=== PATIENT | male | born 1965 | race Two or more races ===

== ENCOUNTER 2025-08-22 13:35 | Outpatient (AMB) | payer MEDICAID, SELFPAY ==
[2025-08-22 13:45] VITALS: BP 136/65; PULSE 57; RESP 18; TEMP 37; O2SAT 96; BMI 28.7
--- NOTE | 2025-08-22 13:45 | PD.GSCLVISIT ---
[facility] - [facility] 08/22/25 13:45 Height 1.66 m Height Method Measured Weight 79.124 kg Weight Measurement Method Standing Scale BMI 28.7 BP 136/65 H Blood Pressure Source Automatic Cuff Blood Pressure Location Left Upper Arm Position Sitting Respiration 18 Pulse 57 L Pulse Source Monitor Temp 98.6 F Temp Source Temporal Artery Scan Pulse Oximetry (%) 96 Oxygen Delivery Method Room Air Med/Allergies Allergies & Medications Allergies NKA* Allergy (Uncoded 08/22/25 13:51) Medication Reconciliation hydrocodone 5 mg-acetaminophen 325 mg tablet ([place]) 1 tab PO Q6HR PRN pain #30 tabs 06/14/18 [Rx Confirmed 08/22/25] MA Intake Visit Data Collection New Patient or Established: New Patient (never been to [facility]) Seen by Clinical Staff ONLY (RN/MA): No Reason for Visit:: REFERRAL COLONOSCOPY Pain Present Currently: No Pain scale:: 0 Pain Scale Used: Rodriguez-Joshi/Numerical Featheredge Machine Operator Required: Yes PCP or OBGYN visit in last 3 months: Yes Hx Now: No Do You Feel Safe at Home: Yes Authorities Contacted: N/A Smoking Status Smoking Status: Never smoker Immunization / Flu Flu Vaccine in the Last 12 Months: Yes Flu Vaccine Exclusion Criteria: Already Received Past Medical History Past Medical History NEUROLOGIC: Negative Seizures CARDIAC: Negative Cardiac Disorders or Congestive Heart Failure RESPIRATORY: Negative Chronic Obstructive Pulmonary Disease (COPD) or Asthma GENITOURINARY: Negative Renal Disease ENDOCRINE: Negative Diabetes Mellitus Type 1 or Diabetes Mellitus Type 2 HEMATOLOGIC: Negative Sickle Cell Disease OTHER HISTORY: Negative Blood Transfusions, Blood Transfusion Reaction or Anesthesia Reactions Social History SMOKING STATUS: Smoking status: Never smoker ALCOHOL: Alcohol Intake: Current ALCOHOL FREQUENCY: Alcohol Intake Frequency: 0-2 Drinks per Day HOUSING: Housing: House LIVES WITH: Lives With: Family HPI HPI Narrative HISTORY OF PRESENT ILLNESS I, Margy Connelly, have obtained verbal consent from the patient, to be recorded during this encounter which may include, but not limited to, medical history, examination, treatment plans, and relevant health information.? Patient was informed that recording will be read and reviewed by myself before inclusion in the medical chart. The patient presents for a colonoscopy. Spoke to pt with in-person interpreter and translator 60M referred for his first colonoscopy. He reports no recent alterations in his bowel movements, maintaining regularity without any instances of constipation or straining. He has not observed any blood in his stool or on the toilet paper after wiping. He denies any anorexia, unintentional weight loss and overall feels well PMH: None PSH: Appendectomy in 2018, pathology reviewed Meds: None Allergies: NKDA Family history: Brother diagnosed with colon cancer at age 67. Patient reports he does have other siblings none of whom were diagnosed with cancer 1. Colonoscopy. A colonoscopy is recommended to screen for polyps before they become cancerous, especially given the family history of colon cancer. The procedure will be scheduled within the next 2 weeks or by the following month. Instructions for pre-procedure preparation have been provided, including dietary restrictions and the need to consume clear liquids the day before the procedure. A prescription for a bowel-cleansing medication will be sent to the pharmacy, which should be taken the day before the procedure to induce diarrhea. The potential risks associated with the procedure, such as bleeding and colon perforation, have been discussed. If polyps are found during the procedure, they will be removed. If the entire colon cannot be safely visualized, the procedure will be stopped, and a referral to a dairy cattle farmer will be made. ROS Review of Systems Systems Reviewed: All systems reviewed, normal except as documented Objective/Exam General General Appearance: alert, cooperative and well groomed Resp Respiratory exam: Absent respiratory distress Assessment & Plan Diagnosis / Problem List (1) Encounter for colonoscopy in patient with family history of colon cancer: Status: Acute Assessment & Plan: 60M with no PMH, brother diagnosed with colon CA at age 67 needing first screening colonoscopy. I explained prep, sedation and benefits/risks including bleeding, perforation requiring emergency surgery as well as the potential of needing to abort prematurely for safety. All questions were answered and pt is agreeable to proceeding Office Procedures GNS Level of Care Nursing/Assessment Patient Status: Established Patient Nursing Assessment/Reassesment: Medication Reconciliation, Update PMH in EMR and Vital Signs Coordination of Care: Complex Care and Chronic Disease 1-5, Education Complex Pt/Fam, Consent,records obtained, informed consent, Results/Orders obtained and Staff clarify orders Established Patient Charge Established Patient Point Assignment: 95 Established Patient Point Charge: EP Level 3 (80-115) Patient Portal Questionaires Social History Living Situation History Housing: House Tobacco History Smoking Status: Never smoker Alcohol History Alcohol Intake: Current Alcohol Intake Frequency: 0-2 Drinks per Day Domestic Abuse History Do You Feel Safe at Home: Yes Review of Systems Report any current symptoms Only answer those that you have currently: Past Medical History Past Medical History Have you ever been diagnosed with any of the following: Neurological Problems Seizures: No Cardiology Problems Congestive Heart Failure: No Respiratory Problems Chronic Obstructive Pulmonary Disease (COPD): No Asthma: No Genital/Urinary Problems Renal Disease: No Endocrine Problems Diabetes Mellitus Type 1: No Diabetes Mellitus Type 2: No Blood Problems Sickle Cell Disease: No Other Problems Blood Transfusions: No Blood Transfusion Reaction: No Anesthesia Reactions: No
== END 2025-08-22 14:05 | disposition home or self-care (01) ==
LOC: HODSRG 13:35
PROVIDERS: PCP Family Medicine; Referring Provider Family Medicine; Supervising Provider Otolaryngology; Visit Provider Surgery
DX: Z01.818 Encounter for other preprocedural examination (principal); Z80.0 Family history of malignant neoplasm of digestive organs
CPT/HCPCS: 99213; G0463

== ENCOUNTER 2025-09-01 09:00 | Day surgery (SDC) | payer MEDICAID, SELFPAY ==
[2025-08-29 13:04] VITALS: BMI 28.3
[2025-09-01] VITALS (12 sets, daily range): BP systolic 114–147; BP diastolic 72–89; PULSE 57–64; RESP 15–20; TEMP 36.3–36.8; O2SAT 94–98; BMI 28.9
[2025-09-01] MEDS: RINGERS LACTATED 500 ML 500 ML 20 ML IV (11:00)
[2025-09-01] MEDS: fentaNYL CIT INJ 50 mCg/ML AMP 2ML (ASD USE ONLY) IVP (11:04)
[2025-09-01] MEDS: MIDAZOLAM INJ 1 MG/ML VIAL 2 ML (ASD USE ONLY) 2 MG IVP (11:04)
== END 2025-09-01 12:05 | disposition home or self-care (01) ==
PROVIDERS: PCP Family Medicine; Referring Provider Surgery; Visit Provider Surgery
PROC: 0DBE8ZX Excision of Large Intestine, Via Natural or Artificial Opening Endoscopic, Diagnostic (ICD-10-PCS; CPT 45380; principal; 2025-09-01 11:15)
DX: Z12.11 Encounter for screening for malignant neoplasm of colon (principal); D12.3 Benign neoplasm of transverse colon; K64.8 Other hemorrhoids; K57.30 Diverticulosis of large intestine without perforation or abscess without bleeding; Z80.0 Family history of malignant neoplasm of digestive organs
CPT/HCPCS: 45385; A4649; J1200; J2250; J3010; J7120

== ENCOUNTER 2025-09-15 15:38 | Outpatient (AMB) | payer MEDICAID, SELFPAY ==
[2025-09-15 15:45] VITALS: BP 141/95; PULSE 75; RESP 18; TEMP 36.9; O2SAT 96; BMI 29.0
--- NOTE | 2025-09-15 15:45 | GSCOFFNT_ITS ---
[facility] - [facility] 09/15/25 15:45 Height 1.65 m Height Method Measured Weight 79.095 kg Weight Measurement Method Standing Scale BMI 29.0 BP 141/95 H Blood Pressure Source Automatic Cuff Blood Pressure Location Left Upper Arm Position Sitting Respiration 18 Pulse 75 Pulse Source Monitor Temp 98.4 F Temp Source Temporal Artery Scan Pulse Oximetry (%) 96 Oxygen Delivery Method Room Air Med/Allergies Allergies & Medications Allergies No Known Allergies Allergy (Verified 09/15/25 15:46) Medication Reconciliation No Known Home Medications 08/29/25 [History Confirmed 09/15/25] MA Intake Visit Data Collection New Patient or Established: Established Patient (seen at [facility] within 3 years) Seen by Clinical Staff ONLY (RN/MA): No Reason for Visit:: COLONOSCOPY F/U Pain Present Currently: No Pain Scale Used: Rodriguez-Joshi/Numerical Riveter Automobile Brakes Required: Yes PCP or OBGYN visit in last 3 months: Yes Hx Now: No Do You Feel Safe at Home: Yes Authorities Contacted: N/A Smoking Status Smoking Status: Never smoker Immunization / Flu Flu Vaccine in the Last 12 Months: Yes Flu Vaccine Exclusion Criteria: Already Received Past Medical History Past Medical History NEUROLOGIC: Negative Neurological Disorders or Seizures CARDIAC: Negative Cardiac Disorders or Congestive Heart Failure RESPIRATORY: Negative Chronic Obstructive Pulmonary Disease (COPD) or Asthma GASTROINTESTINAL: Negative Gastrointestinal Disorders GENITOURINARY: Negative Genitourinary Disorders or Renal Disease ENDOCRINE: Negative Endocrine Disorders, Diabetes Mellitus Type 1 or Diabetes Mellitus Type 2 HEMATOLOGIC: Negative Sickle Cell Disease OTHER HISTORY: Negative Blood Transfusions or Anesthesia Reactions Surgical History SURGICAL: Positive Abdominal Surgery Social History SMOKING STATUS: Smoking status: Never smoker ALCOHOL: Alcohol Intake: Former ALCOHOL FREQUENCY: Alcohol Intake Frequency: 0-2 Drinks per Day HOUSING: Housing: House LIVES WITH: Lives With: Family HPI HPI Narrative Spoke to pt with in-person bilingual interpreter 60M who presented for colonoscopy 08/2025 here for results. Pt reports feeling very well overall with no complaints, was found to have two polyps in the transverse colon, the larger of the two approx 1cm. The specimens were sent together and the report reads tubulovillous adenoma ROS Review of Systems Systems Reviewed: All systems reviewed, normal except as documented Objective/Exam General General Appearance: alert, cooperative and well groomed Resp Respiratory exam: Absent respiratory distress Results Colonoscopy and pathology reports reviewed Assessment & Plan Diagnosis / Problem List (1) Encounter to discuss colonoscopy results: Status: Acute Assessment & Plan: 60M who presented for colonoscopy 08/2025 here for results with findings of transverse colon tubulovillous adenoma. As such I recommended repeat colonoscopy in 3 years. All questions were answered and pt expressed understanding Office Procedures GNS Level of Care Nursing/Assessment Patient Status: Established Patient Nursing Assessment/Reassesment: Medication Reconciliation, Update PMH in EMR and Vital Signs Coordination of Care: Complex Care and Chronic Disease 1-5, Education Complex Pt/Fam, Consent,records obtained, informed consent, Results/Orders obtained and Staff clarify orders Established Patient Charge Established Patient Point Assignment: 95 Established Patient Point Charge: EP Level 3 (80-115) Patient Portal Questionaires Social History Living Situation History Housing: House Tobacco History Smoking Status: Never smoker Alcohol History Alcohol Intake: Former Alcohol Intake Frequency: 0-2 Drinks per Day Domestic Abuse History Do You Feel Safe at Home: Yes Review of Systems Report any current symptoms Only answer those that you have currently: Past Medical History Past Medical History Have you ever been diagnosed with any of the following: Neurological Problems Seizures: No Cardiology Problems Congestive Heart Failure: No Respiratory Problems Chronic Obstructive Pulmonary Disease (COPD): No Asthma: No Genital/Urinary Problems Renal Disease: No Endocrine Problems Diabetes Mellitus Type 1: No Diabetes Mellitus Type 2: No Blood Problems Sickle Cell Disease: No Other Problems Blood Transfusions: No Anesthesia Reactions: No
== END 2025-09-15 15:52 | disposition home or self-care (01) ==
LOC: HODSRG 15:38
PROVIDERS: PCP Family Medicine; Referring Provider Family Medicine; Supervising Provider Surgery; Visit Provider Surgery
DX: Z71.2 Person consulting for explanation of examination or test findings (principal); D12.3 Benign neoplasm of transverse colon
CPT/HCPCS: 99213; G0463